=== PATIENT | female | born 2000 | race Two or more races ===

== ENCOUNTER 2020-08-30 18:30 | Observation (INO) | payer BC, SELFPAY ==
[~2020-08-30] VITALS: Ht 152.4 cm; Wt 64.0 kg
[2020-08-30] MEDS ORDERED: LACTATED RINGERS 1,000 ML IV SCH (19:00)
[2020-08-30 19:18] VITALS: BP 116/69
[2020-08-30 20:12] LABS: POTASSIUM 3.3 mmol/L (3.5-5.1)
[2020-08-30 20:13] LABS: ALBUMIN 2.7 g/dL (3.4-5.0); ANION GAP 13.2 (8-16); CARBON DIOXIDE 24.1 mmol/L (21-32); CREATININE 0.6 mg/dL (0.6-1.3); TOTAL BILIRUBIN 0.2 mg/dL (0.0-1.0)
[2020-08-30 20:18] LABS: EOSINOPHILS % (AUTO) 2.4 % (0.0-4.0); HEMATOCRIT 32.7 % (36-48); HEMOGLOBIN 11.3 g/dL (12.0-16.0); LYMPHOCYTES % (AUTO) 15.4 % (20.5-51.1); MEAN CORPUSCULAR HEMOGLOBIN 33 pg (27-31); MEAN CORPUSCULAR HGB CONC 34 g/dL (33-37); MEAN CORPUSCULAR VOLUME 95.2 fL (80-94); MONOCYTES % (AUTO) 4.4 % (1.7-9.3); NEUTROPHILS % (AUTO) 77.6 % (42.2-75.2); PLATELET COUNT (AUTO) 243 K/uL (140-450); RED BLOOD CELL COUNT(AUTO) 3.44 MIL/uL (4.20-5.40); RED CELL DISTRIBUTION WIDTH 12.4 % (11.6-13.7); WHITE BLOOD COUNT (AUTO) 10.6 K/uL (4.5-11.0)
[2020-08-30 20:19] LABS: BASOPHILS % (AUTO) 0.2 % (0.0-2.0); EOSINOPHILS # (AUTO) 0.3 K/uL (0-0.4); LYMPHOCYTES # (AUTO) 1.6 K/uL (2.5-16.5); MONOCYTES # (AUTO) 0.5 K/uL (0.8-1.0); NEUTROPHILS # (AUTO) 8.2 K/uL (1.8-7.7)
[2020-08-30 23:10] LABS: APPEARANCE,URINE SL CLOUDY (CLEAR); BILIRUBIN,URINE NEGATIVE (NEGATIVE); BLOOD, URINE NEGATIVE (NEGATIVE); COLOR,URINE YELLOW (YELLOW); LEUKOCYTE ESTERASE ,URINE NEGATIVE (NEGATIVE); NITRITE, URINE NEGATIVE (NEGATIVE); UGLUCOSE 3+ (NEGATIVE)
[2020-08-30 23:30] LABS: RBC,URINE NONE SEEN /HPF (0-5)
--- NOTE | 2020-08-31 08:39 | NUR ---
PATIENT HAS BEEN SCREENED AND CATEGORIZED LOW NUTRITION RISK. PATIENT WILL BE SEEN WITHIN 7 DAYS OF ADMISSION. 09/06/[address]
== END 2020-08-31 07:35 | disposition home or self-care (01) ==
LOC: MLD 18:30 → MFCC 22:00
PROVIDERS: ADMIT Obstetrics & Gynecology; ATTEND Obstetrics & Gynecology
DX: O9A.212 Injury, poisoning and certain other consequences of external causes complicating pregnancy, second trimester (principal); Z20.828 Contact with and (suspected) exposure to other viral communicable diseases; O26.892 Other specified pregnancy related conditions, second trimester; R10.9 Unspecified abdominal pain; Z3A.26 26 weeks gestation of pregnancy; W01.0XXA Fall on same level from slipping, tripping and stumbling without subsequent striking against object, initial encounter; Y93.01 Activity, walking, marching and hiking; Y92.512 Supermarket, store or market as the place of occurrence of the external cause
CPT/HCPCS: 36415; 76805; 76817; 80053; 81001; 85025; 85384; 86886; 86900; 86901; 87086; 87426; 96360; 96361; G0378; J7120; Q0092

== ENCOUNTER 2020-11-08 10:00 | Observation (INO) | payer BC, SELFPAY ==
[~2020-11-08] VITALS: Ht 152.4 cm; Wt 70.8 kg
[2020-11-08] MEDS ORDERED: MORPHINE SULFATE 5 MG/ML VIAL IVP PRN (10:40)
[2020-11-08] MEDS: LACTATED RINGERS 1,000 ML IV SCH ×2 (11:34→18:18)
[2020-11-08] MEDS ORDERED: BETAMETH ACET/BETAMETH NA PH 30 MG/5 ML VIAL IM ONE (11:55)
[2020-11-08] MEDS ORDERED: NIFEdipine 10 MG CAPLF ONE (11:55)
[2020-11-08 12:00] VITALS: BP 124/87
[2020-11-08] MEDS ORDERED: NIFEdipine 10 MG CAPLF PO SCH ×2 (12:00→12:15)
[2020-11-08] MEDS ORDERED: MORPHINE SULFATE 10 MG/ML VIAL ONE ×2 (12:08→18:05)
[2020-11-08 12:10] LABS: BASOPHILS % (AUTO) 0.5 % (0.0-2.0); EOSINOPHILS # (AUTO) 0.3 K/uL (0-0.4); EOSINOPHILS % (AUTO) 3.7 % (0.0-4.0); HEMOGLOBIN 13.3 g/dL (12.0-16.0); LYMPHOCYTES # (AUTO) 1.9 K/uL (2.5-16.5); LYMPHOCYTES % (AUTO) 22.2 % (20.5-51.1); MEAN CORPUSCULAR HEMOGLOBIN 32 pg (27-31); MEAN CORPUSCULAR HGB CONC 34 g/dL (33-37); MEAN CORPUSCULAR VOLUME 94.8 fL (80-94); MONOCYTES # (AUTO) 0.4 K/uL (0.8-1.0); MONOCYTES % (AUTO) 4.5 % (1.7-9.3); NEUTROPHILS % (AUTO) 69.1 % (42.2-75.2); PLATELET COUNT (AUTO) 216 K/uL (140-450); RED BLOOD CELL COUNT(AUTO) 4.12 MIL/uL (4.20-5.40); RED CELL DISTRIBUTION WIDTH 12.5 % (11.6-13.7); WHITE BLOOD COUNT (AUTO) 8.6 K/uL (4.8-10.8)
[2020-11-08] MEDS: ONDANSETRON 4 MG/2 ML VIAL IVP PRN ×2 (12:14→18:14)
[2020-11-08] MEDS ORDERED: BETAMETH ACET/BETAMETH NA PH 30 MG/5 ML VIAL IM SCH (12:15)
[2020-11-08 12:16] VITALS: BP 109/64
[2020-11-08 12:36] LABS: ALBUMIN 2.8 g/dL (3.4-5.0); ANION GAP 14.6 (8-16); CARBON DIOXIDE 24.6 mmol/L (21-32); CREATININE 0.7 mg/dL (0.6-1.3); POTASSIUM 4.2 mmol/L (3.5-5.1); TOTAL BILIRUBIN 0.3 mg/dL (0.0-1.0)
[2020-11-08 12:39] LABS: APPEARANCE,URINE CLEAR (CLEAR); BILIRUBIN,URINE NEGATIVE (NEGATIVE); BLOOD, URINE NEGATIVE (NEGATIVE); COLOR,URINE YELLOW (YELLOW); LEUKOCYTE ESTERASE ,URINE TRACE (NEGATIVE); NITRITE, URINE NEGATIVE (NEGATIVE); PH,URINE 8.5 (5.0-9.0); UGLUCOSE NEGATIVE (NEGATIVE)
[2020-11-08 13:01] LABS: RBC,URINE 0-5 /HPF (0-5); WBC,URINE 0-5 /HPF (0-5)
[2020-11-08] MEDS ORDERED: PREN-497 PO (16:40)
[2020-11-09] MEDS: ONDANSETRON 4 MG/2 ML VIAL IVP PRN (00:08)
[2020-11-09] MEDS: LACTATED RINGERS 1,000 ML IV SCH ×3 (00:13→10:44)
--- NOTE | 2020-11-09 09:51 | NUR ---
PATIENT HAS BEEN SCREENED AND CATEGORIZED LOW NUTRITION RISK. PATIENT WILL BE SEEN WITHIN 7 DAYS OF ADMISSION. 11/15/[address]
[2020-11-09] MEDS ORDERED: ACETAMINOPHEN EXTRA STRENGTH 500 MG TAB PO PRN (10:55)
[2020-11-09] MEDS ORDERED: ACETAMINOPHEN EXTRA STRENGTH 500 MG TAB ONE (10:59)
[2020-11-09] MEDS ORDERED: BETAMETH ACET/BETAMETH NA PH 30 MG/5 ML VIAL IM ONE (12:05)
[2020-11-09] MEDS ORDERED: BETAMETH ACET/BETAMETH NA PH 30 MG/5 ML VIAL IM SCH (12:40)
== END 2020-11-09 19:10 | disposition home or self-care (01) ==
LOC: MLD 10:00
PROVIDERS: ADMIT Obstetrics & Gynecology; ATTEND Obstetrics & Gynecology
DX: O60.03 Preterm labor without delivery, third trimester (principal); Z20.828 Contact with and (suspected) exposure to other viral communicable diseases; Z3A.36 36 weeks gestation of pregnancy
CPT/HCPCS: 36415; 59025; 80053; 81001; 85025; 86592; 86886; 86900; 86901; 87426; 87653; 96361; 96372; 96374; 96375; 96376; G0378; J0702; J2270; J2405

== ENCOUNTER 2020-11-20 19:47 | Inpatient (IN) | payer BC, SELFPAY ==
[~2020-11-20] VITALS: Ht 152.4 cm; Wt 69.4 kg
[~2020-11-20 19:47] MED LIST: PREN-497 PO
[2020-11-20] MEDS ORDERED: MORPHINE SULFATE 5 MG/ML VIAL IVP PRN (20:35)
[2020-11-20 20:41] VITALS: BP 126/68
[2020-11-20] MEDS ORDERED: MORPHINE SULFATE 10 MG/ML VIAL ONE (21:20)
[2020-11-20] MEDS: ONDANSETRON 4 MG/2 ML VIAL IVP PRN (21:27)
[2020-11-20 21:34] LABS: APPEARANCE,URINE SL CLOUDY (CLEAR); BILIRUBIN,URINE NEGATIVE (NEGATIVE); BLOOD, URINE NEGATIVE (NEGATIVE); COLOR,URINE YELLOW (YELLOW); LEUKOCYTE ESTERASE ,URINE 2+ (NEGATIVE); NITRITE, URINE NEGATIVE (NEGATIVE); UGLUCOSE NEGATIVE (NEGATIVE)
[2020-11-20 21:36] LABS: BASOPHILS % (AUTO) 0.4 % (0.0-2.0); EOSINOPHILS # (AUTO) 0.1 K/uL (0-0.4); EOSINOPHILS % (AUTO) 0.8 % (0.0-4.0); HEMATOCRIT 38.7 % (36-48); HEMOGLOBIN 13.2 g/dL (12.0-16.0); LYMPHOCYTES % (AUTO) 19.5 % (20.5-51.1); MEAN CORPUSCULAR HEMOGLOBIN 32 pg (27-31); MEAN CORPUSCULAR HGB CONC 34 g/dL (33-37); MEAN CORPUSCULAR VOLUME 94.8 fL (80-94); MONOCYTES # (AUTO) 0.5 K/uL (0.8-1.0); MONOCYTES % (AUTO) 4.8 % (1.7-9.3); NEUTROPHILS # (AUTO) 7.8 K/uL (1.8-7.7); NEUTROPHILS % (AUTO) 74.5 % (42.2-75.2); PLATELET COUNT (AUTO) 219 K/uL (140-450); RED BLOOD CELL COUNT(AUTO) 4.08 MIL/uL (4.20-5.40); RED CELL DISTRIBUTION WIDTH 12.7 % (11.6-13.7); WHITE BLOOD COUNT (AUTO) 10.5 K/uL (4.8-10.8)
[2020-11-20 21:42] LABS: ALBUMIN 2.9 g/dL (3.4-5.0); ANION GAP 12.9 (8-16); CARBON DIOXIDE 24.1 mmol/L (21-32); CREATININE 0.7 mg/dL (0.6-1.3); TOTAL BILIRUBIN 0.3 mg/dL (0.0-1.0)
[2020-11-20 22:13] LABS: RBC,URINE 0-5 /HPF (0-5)
[2020-11-21] MEDS ORDERED: CARBOPROST 250 MCG/ML AMP IM PRN (07:55)
[2020-11-21] MEDS ORDERED: OXYTOCIN 20 UNITS in LACTATED RINGERS 1,000 ML IV SCH (07:55)
[2020-11-21] MEDS ORDERED: METHYLERGONOVINE 0.2 MG/ML AMP IM PRN ×2 (07:55→20:55)
[2020-11-21] MEDS ORDERED: AMPICILLIN 2,000 MG VIAL ONE (08:08)
--- NOTE | 2020-11-21 08:41 | NUR ---
PATIENT HAS BEEN SCREENED AND CATEGORIZED LOW NUTRITION RISK. PATIENT WILL BE SEEN WITHIN 7 DAYS OF ADMISSION. 11/27/[address]
[2020-11-21 08:45] LABS: BASOPHILS % (AUTO) 0.4 % (0.0-2.0); EOSINOPHILS # (AUTO) 0.1 K/uL (0-0.4); EOSINOPHILS % (AUTO) 0.6 % (0.0-4.0); HEMATOCRIT 36.1 % (36-48); HEMOGLOBIN 12.2 g/dL (12.0-16.0); LYMPHOCYTES # (AUTO) 1.8 K/uL (2.5-16.5); LYMPHOCYTES % (AUTO) 20.6 % (20.5-51.1); MEAN CORPUSCULAR HEMOGLOBIN 32 pg (27-31); MEAN CORPUSCULAR HGB CONC 34 g/dL (33-37); MEAN CORPUSCULAR VOLUME 95.2 fL (80-94); MONOCYTES # (AUTO) 0.4 K/uL (0.8-1.0); MONOCYTES % (AUTO) 4.7 % (1.7-9.3); NEUTROPHILS # (AUTO) 6.6 K/uL (1.8-7.7); NEUTROPHILS % (AUTO) 73.7 % (42.2-75.2); PLATELET COUNT (AUTO) 207 K/uL (140-450); RED BLOOD CELL COUNT(AUTO) 3.79 MIL/uL (4.20-5.40); RED CELL DISTRIBUTION WIDTH 12.7 % (11.6-13.7); WHITE BLOOD COUNT (AUTO) 8.9 K/uL (4.8-10.8)
[2020-11-21] MEDS ORDERED: AMPICILLIN 2,000 MG in NACL 0.9% MINI-BAG PLUS 100 ML IV SCH (09:00)
[2020-11-21] MEDS: LACTATED RINGERS 1,000 ML IV SCH ×4 (10:55→15:47)
[2020-11-21] MEDS ORDERED: fentaNYL citrate 0.05 MG/ML VIAL ONE (11:34)
[2020-11-21] MEDS ORDERED: ROPIVACAINE 0.2%/NS PREMIX 200 ML EPI ONE (11:34)
[2020-11-21] MEDS ORDERED: AMPICILLIN 1,000 MG VIAL ONE ×2 (12:23→16:52)
[2020-11-21] MEDS ORDERED: OXYTOCIN 20 UNITS/LR PREMIX 1,000 ML IV ONE (12:24)
[2020-11-21] MEDS: AMPICILLIN 1,000 MG in NACL 0.9% MINI-BAG PLUS 50 ML IV SCH ×2 (12:52→16:59)
[2020-11-21] MEDS: ONDANSETRON 4 MG/2 ML VIAL IVP PRN (18:44)
[2020-11-21] MEDS ORDERED: DOCUSATE SODIUM 100 MG GELCAP PO PRN (20:55)
[2020-11-21] MEDS ORDERED: OXYTOCIN 10 UNITS/ML VIAL IM PRN (20:55)
[2020-11-21] MEDS ORDERED: MEASLES, MUMPS, AND RUBELLA 1 VIAL SQVAC PRN (20:55)
[2020-11-21] MEDS ORDERED: SIMETHICONE 80 MG TAB.CHEW PO PRN (20:55)
[2020-11-21] MEDS ORDERED: bisacodyL 5 MG TABEC PO PRN (20:55)
[2020-11-21] MEDS ORDERED: METHYLERGONOVINE 0.2 MG TAB PO PRN (20:55)
[2020-11-21] MEDS ORDERED: BENZOCAINE/MENTHOL 20%-0.5% 60 GM CAN TP PRN (20:55)
[2020-11-22] MEDS: IBUPROFEN 800 MG TAB PO PRN ×2 (00:46→10:50)
[2020-11-22] MEDS: IBUPROFEN 600 MG TAB PO PRN ×2 (06:38→15:56)
[2020-11-22 12:04] LABS: HEMATOCRIT 35.9 % (36-48)
[2020-11-22] MEDS ORDERED: oxyCODONE/APAP 5/325 MG 1 TAB TAB PO PRN (13:30)
[2020-11-23] MEDS: IBUPROFEN 600 MG TAB PO PRN ×2 (02:48→11:24)
== END 2020-11-23 15:30 | disposition home or self-care (01) | DRG 807 ==
LOC: MLD 19:47 → MFCC 11-22 00:05
PROVIDERS: ADMIT Obstetrics & Gynecology; ATTEND Obstetrics & Gynecology
PROC: 3E0R3BZ Introduction of Anesthetic Agent into Spinal Canal, Percutaneous Approach (ICD-10-PCS; 2020-11-20)
PROC: 00HU33Z Insertion of Infusion Device into Spinal Canal, Percutaneous Approach (ICD-10-PCS; 2020-11-20)
PROC: 10E0XZZ Delivery of Products of Conception, External Approach (ICD-10-PCS; principal; 2020-11-22)
DX: O99.824 Streptococcus B carrier state complicating childbirth (principal); Z37.0 Single live birth; O60.23X0 Term delivery with preterm labor, third trimester, not applicable or unspecified; Z3A.38 38 weeks gestation of pregnancy; O99.02 Anemia complicating childbirth; D64.9 Anemia, unspecified; Z28.21 Immunization not carried out because of patient refusal
CPT/HCPCS: 36415; 51702; 59409; 80053; 81001; 85018; 85025; 86592; 86886; 86900; 86901; 87086; J0290; J2270; J2405; J2590; J2795; J3010; J7120